=== PATIENT | female | born 1945 | race Caucasian/White ===

== ENCOUNTER → 2018-08-22 | Outpatient (CLI) | payer MEDICARE, OTHER ==
[~2018-08-22] MED LIST: ACE3 PO; ASPI81TA94 PO; ESTR42.59 VG; MULT-885 PO; OMEG500C5 PO; TOLT4CAP13 PO
== END ==
LOC: RESP 20:48
PROVIDERS: ATTEND Family Medicine
DX: G47.33 Obstructive sleep apnea (adult) (pediatric) (principal); G47.61 Periodic limb movement disorder